=== PATIENT | male | born 1955 | race Caucasian/White ===

== ENCOUNTER 2021-01-11 13:18 | Emergency (ER) | payer MEDICAID, MEDICARE ==
[~2021-01-11] VITALS: Ht 165.1 cm; Wt 78.0 kg
[2021-01-11 16:30] LABS: CLARITY URINE CLOUDY (CLEAR); COLOR URINE YELLOW (YELLOW); KETONES URINE NEGATIVE (NEGATIVE); LEUKOCYTE ESTERASE URINE 3+ (NEGATIVE); NITRITE URINE NEGATIVE (NEGATIVE); OCCULT BLOOD URINE 2+ (NEGATIVE); PH URINE 6.5 (4.5-8.0); PROTEIN URINE 2+ (NEGATIVE); SPECIFIC GRAVITY URINE 1.018 (1.005-1.030); UROBILINOGEN URINE 0.2 E.U./dL (0.2-1.0)
[2021-01-11 16:51] VITALS: BP 141/81
== END 2021-01-11 16:51 | disposition home or self-care (01) ==
LOC: ER 13:18
DX: Z43.6 Encounter for attention to other artificial openings of urinary tract (principal); R45.1 Restlessness and agitation; I69.351 Hemiplegia and hemiparesis following cerebral infarction affecting right dominant side; I10 Essential (primary) hypertension; E11.9 Type 2 diabetes mellitus without complications; Z79.899 Other long term (current) drug therapy; Z87.01 Personal history of pneumonia (recurrent); I48.91 Unspecified atrial fibrillation
CPT/HCPCS: 51702; 81003; 99284; A4315

== ENCOUNTER 2021-03-12 18:07 | Emergency (ER) | payer MEDICARE, MEDICAID ==
[~2021-03-12] VITALS: Ht 170.2 cm; Wt 100.0 kg
[2021-03-13 00:30] VITALS: BP 152/78
== END 2021-03-13 00:50 | disposition home or self-care (01) ==
LOC: ER 18:07
DX: T83.021A Displacement of indwelling urethral catheter, initial encounter (principal); Y73.8 Miscellaneous gastroenterology and urology devices associated with adverse incidents, not elsewhere classified; Y92.89 Other specified places as the place of occurrence of the external cause; I10 Essential (primary) hypertension; E11.9 Type 2 diabetes mellitus without complications; Z86.73 Personal history of transient ischemic attack (TIA), and cerebral infarction without residual deficits; F03.90 Unspecified dementia, unspecified severity, without behavioral disturbance, psychotic disturbance, mood disturbance, and anxiety
CPT/HCPCS: 99283; A4315